=== PATIENT | male | born 1965 | race African-American/Black ===

== ENCOUNTER 2017-06-26 09:47 | Inpatient (IN) | payer MEDICAID ==
[2017-06-26 10:24] LABS: % IMMATURE GRANULYOCYTES 0.5 % (0.0-1.1); ABSOLUTE IMMATURE GRANULOCYTES 0.04 10^3/uL (0.00-0.10); ADD DIFF? NO; ADD MORPH? NO; ADD SCAN? NO; ATYPICAL LYMPHOCYTE FLAG 0 (0-99); FRAGMENT RBC FLAG 0 (0-99); HEMATOCRIT 47.5 % (40.0-51.0); HEMOGLOBIN 16.4 g/dL (13.7-17.5); LEFT SHIFT FLG 0 (0-99); LIPEMIA HEMOLYSIS FLAG 90 (0-99); MEAN CELL HEMOGLOBIN 30.7 pg (27.9-34.1); MEAN CELL HEMOGLOBIN CONCENTR. 34.5 g/dL (32.4-36.7); MEAN PLATELET VOLUME 9.4 fL (8.7-11.7); PLATELET CLUMPS FLAG 0 (0-99); PLATELET COUNT 253 10^3/uL (150-400); RED BLOOD CELL COUNT 5.34 10^6/uL (4.40-6.38); RED CELL DISTRIBUTION WIDTH 12.4 % (11.5-15.2)
[2017-06-26] MEDS ORDERED: NS 1,000 ML IV ONE (10:29)
[2017-06-26 10:40] LABS: ALANINE AMINOTRANSFERASE 57 IU/L (21-72); ALBUMIN 4.3 g/dL (3.5-5.0); ALKALINE PHOSPHATASE 116 IU/L (38-126); ANION GAP 13 mEq/L (8-16); ASPARTATE AMINOTRANSFERASE 46 IU/L (17-59); BILIRUBIN,TOTAL 0.7 mg/dL (0.1-1.4); CALCIUM 9.8 mg/dL (8.5-10.4); CARBON DIOXIDE 25 mEq/l (22-31); CHLORIDE 102 mEq/L (97-110); CREATININE 0.6 mg/dL (0.7-1.3); GLOMERULAR FILTRATION RATE > 60; GLUCOSE 143 mg/dL (70-100); SODIUM 140 mEq/L (134-144); TOTAL PROTEIN 7.3 g/dL (6.3-8.2)
--- NOTE | 2017-06-26 10:47 | CPEKG ---
Heart Rate: 109 RR Interval: 550 P-R Interval: 152 QRSD Interval: 80 QT Interval: 352 QTC Interval: 475 P [place]: 51 QRS [place]: -1 T Wave [place]: -37 EKG Severity - ABNORMAL ECG - EKG Impression: SINUS TACHYCARDIA EKG Impression: LEFT VENTRICULAR HYPERTROPHY EKG Impression: BORDERLINE T ABNORMALITIES, INFERIOR LEADS Electronically Signed By: Alexandru Rajan 26-Jun-2017 13:47:14
--- NOTE | 2017-06-26 11:53 | EDPHY ---
H & P Stated Complaint: loss of balance generalized x 4 days slurred speech since 6am Time Seen by Provider: 06/26/17 09:56 HPI/ROS: This patient presents with somnolence, dizziness and slurred speech. He was brought in by a co-worker for evaluation of the symptoms. The patient has a background history is notable for tra-mbadwva-ocekmjzfd diabetes and multiple sclerosis off his Copaxone for 1 month now. He also has chronic back pain treated with hydrocodone until 2 days ago when he ran out. His recent social history is notable for a move from [place] 1 month ago. The patient describes a 4 day history of feeling more off balance than his usual baseline with MS. he also reports onset of slurred speech yesterday around 9:00 p.m.. The symptoms that alerted coworkers today is primarily the slurred speech and somnolence. When mere is placed from the patient he also agrees the has a slight left upper lip droop compared to his baseline. The patient reports compliance with his other medications. ROS: No fevers or chills. He does admit fatigue. No other constitutional symptoms HEENT: No recent head injury. No headache. Pulmonary: No cough shortness of breath. Cardiovascular: He denies any chest pain or heart palpitations. No lightheadedness. GI: No abdominal pain, nausea vomiting or diarrhea. : He denies any dysuria. No testicle pain Musculoskeletal: Chronic back pain slightly worse over the past few days. He describes this is bilateral lumbar location. It worsens with movement. It is similar to his chronic low back pain. No recent injuries. Neuro: He reports dysarthria that seems to come and go over the past 2 days. No headache. He has not noticed any new focal numbness tingling or focal weakness. No bowel or bladder incontinence. He denies insomnia Complete review of symptoms is otherwise negative. Source: Patient Exam Limitations: Clinical condition - Personal History Current Tetanus Diphtheria and Acellular Pertussis (TDAP): Yes - Medical/Surgical History PMH: Jwi-mzojeki-rdqgvtczq diabetes MS Hypercholesterolemia Hypertension Bipolar Anxiety Hx Chronic Respiratory Disease: Yes Hx Diabetes: Yes Hx Cardiac Disease: Yes Hx Renal Disease: No Hx Cirrhosis: No Hx Alcoholism: No Hx HIV/AIDS: No Hx Splenectomy or Spleen Trauma: No Other PMH: MS. DM2. HTN. COPD. Chronic Back Pain. Kidney Stones. Sleep Apnea. face surgery and patellar tendon - Social History Smoking Status: Light smoker Alcohol Use: Rarely Drug Use: None Additional Social History: Patient moved to 1 month ago from [place]. Janet gabriel-a friend from [employer] this providing temporary half-way for the patient since his moved to [place] and came in at 10 after 12 explaining that he is weak in sleepy compared to his baseline. 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 Hypertension to 136/100 otherwise normal General: Obese black male Patient is in no acute distress. HEENT: Is no external evidence of trauma on exam. Eyes: Pupils are equal and reactive to light. Extraocular motions are intact. Optic fundi: Clear with no papilledema or hemorrhage. Nose atraumatic. Ears: Clear bilaterally with no hemotympanum. Oropharynx: No dental trauma or malocclusion. No intraoral lacerations. Eyes: Pupils are equal and reactive to light. Extraocular motions are intact. Optic fundi: Clear with no papilledema or hemorrhage. Visual acuity is 20/ 20 right eye, 20/20 OS and 20/20 both eyes with correction Lungs: Clear to auscultation bilaterally Neck: Supple no meningismus. Cardiac: Regular rate and rhythm no murmur gallop or rub. Abdomen: Soft nontender no organomegaly Back: No midline tenderness. He has bilateral lumbar paraspinous tenderness. Straight leg raise is negative bilaterally Neuro: Patient is drowsy-falls asleep intermittently during the exam. He has an NIH stroke scale of 3 with mild limb ataxia in his upper extremities but not lower extremities and slight left upper lip droop. Cranial nerves are otherwise grossly intact. Appreciate no other focal deficits. Maintains 5/5 strength in great toe dorsiflexion plantar flexion bilaterally. Psychiatric: No psychotic symptoms. No suicidal ideation. He denies any intentional overdose. Initial differential diagnosis: MS flare, ischemic stroke, intoxication, [employer] lesion, intracranial bleed, UTI, paraspinous abscess-doubtful Constitutional: Initial Vital Signs Temperature (C) 36.7 C 06/26/17 09:50 Heart Rate 114 H 06/26/17 09:50 Respiratory Rate 20 06/26/17 09:50 Blood Pressure 136/100 H 06/26/17 09:50 O2 Sat (%) 95 06/26/17 09:50 O2 Delivery Mode Room Air Allergies/Adverse Reactions: erythromycin base Allergy (Verified 06/26/17 10:02) ketorolac [From Toradol] Allergy (Verified 06/26/17 10:02) Milk Containing Products [dairy] Allergy (Verified 06/26/17 10:02) Penicillins Allergy (Verified 06/26/17 10:02) Home Medications: Medication Instructions Recorded Diazepam [Valium 5 MG (*)] 5 mg PO DAILY PRN 06/26/17 Dimethyl Fumarate [Tecfidera] 240 mg PO DAILY 06/26/17 Gemfibrozil [Lopid 600 MG (*)] 600 mg PO BIDAC 06/26/17 Glatiramer Acetate [Copaxone] 40 mg SQ Q2D 06/26/17 Hydrochlorothiazide [HCTZ (*)] 25 mg PO BID 06/26/17 Hydrocodone/Acetaminophen [Birney 1 each PO Q6HRS PRN 06/26/17 5/325 (*)] metFORMIN HCL [Glucophage 1000 mg] 1,000 mg PO BIDMEAL 06/26/17 Medical Decision Making - Diagnostics EKG Interpretation: 12 lead EKG performed at 10:45 a.m. indication dizziness-rule out dysrhythmia or VT Sinus tachycardia 109 Intervals: Normal throughout [place]: P of 51, QRS of-1 copy of my [address] segments T-wave inversion in AVF Overall assessment sinus tachycardia with borderline T-wave abnormalities inferiorly-cannot rule out ischemia. No prior EKGs for comparison. Imaging: Discussed imaging studies w/ blower insulator Radiologist ED Course/Re-evaluation: IV, monitor, normal in bolus, I-STAT revealed glucose of 118 Patient remained stable but somnolent while here. I discussed the CT results with Dr. Myers-radiologist white matter changes consistent with MS but no evidence of stroke, bleed, tumor or other gross abnormalities. I spoke with Dr. Paz-neurologist jd edwards consultant who recommends MRI without contrast for evaluation of MS lesions. Tylenol p. o. for back pain Patient's urine alcohol and urine tox are pending. Reviewed the patient's CBC reveals no significant abnormalities. Similarly his comp metabolic panel reveals no significant metabolic pathology. Troponin is normal. We are unable to obtain an MRI here today. Given the patient's ongoing somnolence, and facial droop he warrants admission for further workup and neurology consultation. The patient's level of somnolence diminished after his initial nap while here. However he still has difficulty remembering any details of his history such as the physician that prescribed his medications for him. Discussion: While the patient is increased dizziness may be attributable to MS exacerbation, his somnolence is not. While he denies any recent opiate use or alcohol intake, I suspect possible recent opiate ingestion causing his current somnolence. He does not have significant respiratory depression from this or other acute complicating factors. I doubt infectious etiology given lack of fever or elevated white blood cell count. The patient warrants admission for further workup, observation and treatment of other potential etiology including TIA. I spoke with an at with hospitalist service at [facility] who accepts the patient for admission to Dr. Marciano Juan Urine tox reveals positive benzos. I asked the patient about this at 1:15 p.m. and he reports that he failed to mention Valium muscle relaxer for back pain. He reports last dose was 2 days ago. He also forgot initially that he takes amitriptyline periodically at bedtime for anxiety or insomnia any took a single pill last night. He denies any ingestions of benzos within the last 48 hours he denies any recent alcohol. - Data Points Laboratory Results: Laboratory Results 06/26/17 10:10 06/26/17 10:10 Medications Given: Hydrocodone Bitart/Acetaminophen (Birney 10/325) 2 tab PO Q6HRS PRN PRN Reason: Pain, Severe Able to Take PO Stop: 07/06/17 15:38 Last Admin: 06/28/17 04:12 Dose: 2 tab Diazepam (Valium) 5 mg PO DAILY PRN PRN Reason: Spasms Stop: 12/23/17 15:38 Last Admin: 06/28/17 06:08 Dose: 5 mg Enoxaparin Sodium (Lovenox) 40 mg SC DAILY [facility] Stop: 12/24/17 08:59 Last Admin: 06/28/17 08:33 Dose: 40 mg Gemfibrozil (Lopid) 600 mg PO BIDAC [facility] Stop: 12/23/17 17:29 Last Admin: 06/28/17 06:30 Dose: 600 mg Hydrochlorothiazide (Hydrochlorothiazide) 25 mg PO BID [place] Stop: 12/23/17 20:59 Last Admin: 06/28/17 08:33 Dose: 25 mg Lorazepam (Ativan Injection) 1 mg IVP Q4HRS PRN PRN Reason: Anxiety, Unable to Take PO Stop: 12/23/17 15:57 Last Admin: 06/26/17 20:27 Dose: 1 mg Miscellaneous Medication (Dimethyl Fumarate [Tecfidera]) 0 mg PO DAILY [facility] Stop: 12/24/17 08:59 Last Admin: 06/28/17 08:36 Dose: Not Given Miscellaneous Medication (Glatiramer Acetate [Copaxone]) 0 mg SQ Q2D [facility] Stop: 12/23/17 15:44 Last Admin: 06/26/17 16:30 Dose: Not Given Miscellaneous Medication (Metformin Hcl [Glucophage 1000 Mg]) 0 mg PO BIDMEAL [facility] Stop: 12/24/17 17:59 Last Admin: 06/28/17 08:34 Dose: 1,000 mg Fluticasone/Salmeterol (Advair) 1 puffs IH BID [facility] Stop: 12/24/17 13:59 Last Admin: 06/27/17 21:23 Dose: 1 inh Discontinued Medications Acetaminophen (Tylenol) 1,000 mg PO ONCE ONE Stop: 06/26/17 12:35 Last Admin: 06/26/17 12:45 Dose: Not Given Sodium Chloride (Ns) 1,000 mls @ 0 mls/hr IV ONCE ONE; Wide Open PRN Reason: Protocol Stop: 06/26/17 10:30 Last Admin: 06/26/17 10:30 Dose: 1,000 mls Miscellaneous Medication (Metformin Hcl [Glucophage 1000 Mg]) 0 mg PO BIDMEAL [facility] Stop: 12/23/17 17:59 Last Admin: 06/27/17 08:20 Dose: Not Given Departure - Departure Disposition: [facility] Clinical Impression: Somnolence, Dizziness, Dysarthria, Facial droop, Multiple sclerosis Chronic low back pain Qualifiers: Back pain laterality: bilateral Sciatica presence: without sciatica Qualified Code(s): M54.5 - Low back pain Condition: Fair
[2017-06-26] MEDS ORDERED: ACETAMINOPHEN 500 MG TAB PO ONE (12:34)
[2017-06-26 12:36] LABS: COLOR YELLOW; LEUKOCYTE ESTERASE,URINE NEGATIVE (NEGATIVE); NITRITE,URINE NEGATIVE (NEGATIVE)
[2017-06-26 12:55] LABS: BACTERIA TRACE /hpf (NONE SEEN); MUCUS 2+ /lpf (NONE-1+); WBC,URINE NONE SEEN /hpf (0-3); YEAST OCCASIONAL /hpf (NONE SEEN)
[2017-06-26 13:21] LABS: ETHANOL SERUM < 10 mg/dL (0-10)
[2017-06-26] MEDS ORDERED: ONDANSETRON 4 MG/2 ML VIAL IVP PRN (15:41)
[2017-06-26] MEDS ORDERED: ACETAMINOPHEN 325 MG TAB PO PRN (15:41)
[2017-06-26] MEDS ORDERED: ONDANSETRON DISINTEGRATING 4 MG TAB PO PRN (15:41)
[2017-06-26] MEDS ORDERED: LORazepam 2 MG/ML INJ IVP PRN (15:58)
[2017-06-26] MEDS: GEMFIBROZIL 600 MG TAB PO SCH (16:29)
[2017-06-26] MEDS: HYDROCODONE/APAP 10/325 TAB PO PRN ×2 (16:29→22:54)
[2017-06-26] MEDS: Glatiramer Acetate [Copaxone] 40 MG SQ SCH (16:30)
--- NOTE | 2017-06-26 16:41 | GHP ---
[f rep st] HISTORY AND PHYSICAL DATE OF ADMISSION: 06/26/2017 HISTORY OF PRESENT ILLNESS: The patient is a pleasant 51-year-old gentleman with history of diabetes , hypertension, and multiple sclerosis who presents to urgent care today with multiple complaints. Alejandra miller describes all over body pain as well as difficulty with gait, feeling like he is going to fall forw iona or backwards. He takes Copaxone. He has not had it in at least a month because of relocation [facility] [place] here. He ran out of the prescription. It sounds like he also takes pain medicines. It sounds like he takes [place] every 6 hours, which is somewhat chronic. His pain complaints are bi t nebulous; it sounds like he describes pain everywhere, kidney stones, low back pain. It also sound s as if the patient is out of prescription for those pain pills at home. He denies that is the sole reason for presenting for care. The patient does not have shortness of breath or cough. He does not have chest pain. REVIEW OF SYSTEMS: Complete 10-point review of systems conducted and negative except as noted in the HPI. PAST MEDICAL HISTORY: 1. Type 2 diabetes. 2. Multiple sclerosis. It sounds like relapsing multiple sclerosis. 3. Hypertension. 4. Low back pain. 5. Nephrolithiasis. ALLERGIES: Erythromycin, Ketoralac, milk, penicillin. HOME MEDICATIONS: 1. Columbia. 2. Diazepam. 3. Dimethyl fumarate, which is Tecfidera, which is a multiple sclerosis med. 4. Gemfibrozil. 5. Glatiramer, which is Copaxone. 6. Hydrochlorothiazide. 7. Metformin. SOCIAL HISTORY: Occasional tobacco. No alcohol. 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 FAMILY HISTORY: Reviewed and unremarkable. PHYSICAL EXAMINATION: VITAL SIGNS: Temp 36.7, blood pressure 139/96, pulse in the low 100s. GENERA L: No acute distress. Sclerae anicteric. Oropharynx clear. Mucous membranes moist. NECK: Supple without lymphadenopathy or JVD. Cannot assess JVD secondary to his habitus. HEART: B orderline tachycardic, S1-S2. ABDOMEN: Soft, nontender, nondistended. LOWER EXTREMITIES: No edema . Calves nontender. SKIN: Without rash. NEUROLOGIC: Shows a bit of a wide-based shuffling gait w ith external rotation of his feet. He is able to dorsiflex both feet bilaterally. He has no other f ocal neurologic deficits. Vision was not tested. LABS: Sodium 140, potassium 4, chloride 102, bicarb 25, BUN 10, creatinine 0.6, glucose 143, troponi n less than 0.012. UA has no blood. Tox screen is non negative for benzos and opiates, both of whic h he is prescribed. White count 8, hematocrit 47, platelets 253,000. I have discussed the case with Dr. Alexandru Rajan. He had a nonconstrast head CT that showed multiple nonspecific white matter h ypodensities throughout the bilateral cerebral hemispheres. No acute hemorrhage, no infarcts. EKG s hows sinus at 109 with normal axis and LVH. ASSESSMENT AND PLAN: This is a 51-year-old gentleman with diabetes and multiple sclerosis, presents with multiple complaints. 1. Multiple sclerosis. I suspect the patient has a degree of worsening multiple sclerosis given no Copaxone. Will repeat MRI and have Neurology see him. I will hold off on pulse steroids at this chance e. We will continue his other medications. 2. Pain. I suspect the patient has chronic pain since he has been treated with opiates and he is cu rrently without them. He is not in acute withdrawal. I will restart oral narcotics. 3. Complaints of hematuria. He has no blood on urinalysis and has normal renal function, so no furt her workup is indicated. 4. Diabetes. Will continue his metformin. We will hold insulin, check hemoglobin A1c. 5. Prophylaxis. Pharmacologic prophylaxis indicated with Lovenox. DISPOSITION: 1. Inpatient status. Let PT and OT see him. 2. Hypertension. We will continue his hydrochlorothiazide. 3. Tachycardia in an otherwise nonfocal patient. We will follow. /[id number]/MODL
[2017-06-26] MEDS: METFORMIN HCL 1000 MG PO SCH (18:13)
[2017-06-26] MEDS: HYDROCHLOROTHIAZIDE 25 MG TAB PO SCH (20:24)
[2017-06-27] MEDS: DIAZEPAM 5 MG TAB PO PRN (02:27)
[2017-06-27] MEDS: HYDROCODONE/APAP 10/325 TAB PO PRN ×3 (06:27→21:16)
[2017-06-27] MEDS: GEMFIBROZIL 600 MG TAB PO SCH ×2 (08:19→17:28)
[2017-06-27] MEDS: ENOXAPARIN 40 MG/0.4 ML SYR SC SCH (08:19)
[2017-06-27] MEDS: HYDROCHLOROTHIAZIDE 25 MG TAB PO SCH ×2 (08:19→21:15)
[2017-06-27] MEDS: METFORMIN HCL 1000 MG PO SCH ×2 (08:20→17:28)
[2017-06-27] MEDS: Dimethyl Fumarate [Tecfidera] 240 MG PO SCH (08:20)
[2017-06-27 10:05] LABS: HEMOGLOBIN A1C 5.9 % (4.0-6.0)
--- NOTE | 2017-06-27 11:52 | HOSPPROG ---
Hospitalist Progress Note Assessment/Plan: MS flare: increased white matter changes on MRI. No needs for steroids. FU outpatient with Neuro for Copaxone[ -recommend SNF, but he is worried about work. Will have to stay 30 days for Medicaid #HTN: home meds #Chronic pain: resume home meds #DM: metformin #EDITH: CPAP #Chronic pain: [place] #Diet: regular #DVT ppx: Lovenox #Disp: cont inpt admission with decondition, risk for fall. Cont PT, OT Subjective: feels off-balance Objective: Vital Signs Temp Pulse Resp BP Pulse Ox 36.7 C 105 H 16 126/89 H 92 06/27/17 07:39 06/27/17 07:39 06/27/17 07:39 06/27/17 07:39 06/27/17 07:39 06/26/17 06/27/17 06/28/17 05:59 05:59 05:59 Intake Total 1999 Balance 1999 - Physical Exam Constitutional: no apparent distress, obese Eyes: PERRL Ears, Nose, Mouth, Throat: moist mucous membranes, hearing normal Cardiovascular: regular rate and rhythym, no murmur, rub, or gallop Respiratory: no respiratory distress, no rales or rhonchi Gastrointestinal: normoactive bowel sounds, soft, non-tender abdomen, no palpable masses Genitourinary: no bladder fullness Skin: warm Musculoskeletal: other (weakness LLE ) Neurologic: AAOx3, CN II-XII Intact Psychiatric: interacting appropriately ICD10 Worksheet Patient Problems: Problems Problem Status Onset Chronic low back pain Acute Dizziness Acute Dysarthria Acute Facial droop Acute Multiple sclerosis Acute Somnolence Acute
[2017-06-27] MEDS ORDERED: ALBUTEROL 200 PUFFS/18 GM MDI IH PRN (14:00)
[2017-06-27] MEDS: FLUTICASONE/SALMETER 500/50MCG DISKUS IH SCH ×2 (14:56→21:23)
--- NOTE | 2017-06-27 16:37 | ASMTCMCOM ---
CM Note CM Note Notes: Chart reviewed, pt is a 51 y/o man admitted w/ body pain and difficulty w/ standing. Pt has a hx of multiple sclerosis, diabetets and hypertension. Pt is relocating from [place] to here. Pt ran out of his Copaxone and his prescription pain meds. PT/OT are recommending SNF. CM met w/ pt for dispo planning. Pt was tangential when speaking w/ this CM and had to be redirected multiple times. Pt reports that he works at the [employer] in [place]. 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 Pt is agreeable to going to a SNF. ULTC-100 will be completed on Friday. Referral made to [facility]. CM to follow. Date Signed: 06/27/2017 04:36 PM Electronically Signed By:JEISON Ash
[2017-06-28] MEDS: HYDROCODONE/APAP 10/325 TAB PO PRN ×3 (04:12→20:35)
[2017-06-28] MEDS: DIAZEPAM 5 MG TAB PO PRN (06:08)
[2017-06-28] MEDS: GEMFIBROZIL 600 MG TAB PO SCH ×2 (06:30→18:56)
[2017-06-28] MEDS: HYDROCHLOROTHIAZIDE 25 MG TAB PO SCH ×2 (08:33→20:34)
[2017-06-28] MEDS: ENOXAPARIN 40 MG/0.4 ML SYR SC SCH (08:33)
[2017-06-28] MEDS: METFORMIN HCL 1000 MG PO SCH ×2 (08:34→18:56)
[2017-06-28] MEDS: Dimethyl Fumarate [Tecfidera] 240 MG PO SCH (08:36)
[2017-06-28] MEDS: FLUTICASONE/SALMETER 500/50MCG DISKUS IH SCH ×2 (09:04→20:36)
[2017-06-28] MEDS: Glatiramer Acetate [Copaxone] 40 MG SQ SCH (09:28)
--- NOTE | 2017-06-28 12:11 | GCON ---
[f rep st] CONSULTATION NEUROLOGIC CONSULTATION REFERRING PHYSICIAN: Eleir Juan MD HISTORY: The patient is a 51-year-old gentleman, whom I am asked to see in neurologic consultation r egarding diagnosis of multiple sclerosis and chief complaint of episodes of relatively decreased inte raction and some general decline recently. History is obtained directly from the patient, as we do n ot have any old medical records. He has moved around the country over the last several years with ti me in [place], [place], [place] and most recently back in [place] before coming h ere approximately 1 month ago. He tells me that he developed symptoms about 8 years ago with gait an d balance problems and episodes that were characterized by periods of decreased interaction and some impairment in his speech. He said he could be in a conversation and suddenly stop speaking, and then several seconds later come back to where he was in the middle of a conversation or could speak of so me topic that was completely different. He said people with him would be confused as to what he was doing, and he often does not even know it is happening unless someone points it out to him. He dealt with various symptoms over the years similar to this, but never really had clear-cut explanations un til he had a workup in [place], [place] 2 or 3 years ago and was diagnosed with multiple sclerosi s after imaging studies reportedly showed changes consistent with the disease. Again, with no record s, it is hard to know exactly the details, and that will be important to eventually obtain if possibl e. He often feels as if he is going to fall forward or backward. He has experienced falls. He inju red the right ankle a few years ago, but sounds like perhaps a fracture that never healed completely well. He also describes an episode of slipping at a restaurant, a [employer], hurting his shoulders and periodically notices paresthesias in the extremities. He says he has never received IV steroids for acute multiple sclerosis attacks. There are times when he feels as if he may see visual hallucin ations. He describes episodes of emotional dyscontrol at times and says that he was put on a medicat ion that was advertised by the actor, Sampson Fan. That particular medication is called Nuedexta, a nd that is a brand name for guaifenesin used to treat pseudobulbar affect. With regard to treating multiple sclerosis, he says he was put on Copaxone about 2 or 3 years ago, to ok that for some time and then apparently got on Tecfidera, and seemed to be telling me he was on bot h at once, but that would be really unusual. He seemed a little confused between that drug and the d rug for pseudobulbar affect, which we talked about. That is also a little unclear to me, but most re cently he was on Copaxone and then has not had it for about a month since deciding to come to this ar ea. He tells me he was recently living with a woman and has been no longer welcome to stay there fro m what he is describing. He has been working at [employer] and says he is capable of doing work at [employer], but other times he may struggle. The patient has been diagnosed with sleep apnea and uses CPAP f or the last 6 years. He may have some episodes of sleep paralysis from what he describes. He denies classic cataplexy. Sleep attacks are fairly common for him, and some of this has been witnessed her e as well. REVIEW OF SYSTEMS: A 10-point review of systems is unremarkable, except for that noted above. It hernandes s been difficult for him to describe any clear-cut alleviating or exacerbating factors from what is h appening above. PAST MEDICAL HISTORY: Type 2 diabetes, hypertension, low back pain, history of kidney stones. He hernandes s had some chronic pain issues, for which he has been on pain medications and benzodiazepines at time s. ALLERGIES: Listed erythromycin, ketorolac, milk and penicillin. MEDICATIONS: The medications described when he came in included [place], Valium as needed, Tecfidera a nd Copaxone, gemfibrozil, hydrochlorothiazide and metformin. SOCIAL HISTORY: He has had occasional smoking. No alcohol or drug abuse. He says many years ago he did drink. 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 He finished high school and did a little b it of college. He said he has done various forms of work over the years, but has not been able to ma intain longstanding employment. Mostly, it sounds like he has taken jobs when they are available and has recently started working at a [employer]. He grew up in the foster care system or living in group homes over the years, he says, after originally being in [place] area. He has some family back in [place] with a brother in the [place] area, it sounds like. Recently, he says he has been moving in order to try to find the most affordable place to live, which has included [place], [place], [place] and more recently back to [place]. FAMILY HISTORY: Noncontributory. PHYSICAL EXAMINATION: VITAL SIGNS: Blood pressure is 129/99, pulse of 100, respirations 15, tempera ture 36.6. GENERAL: He is a muscular, mildly overweight gentleman, lying in the bed, in no acute di stress. EYES: Clear. NECK: Supple, with no bruits or masses. CARDIAC: Regular rate and rhythm. No murmur. NEUROLOGIC: He is awake, but a little tired after getting up from the CPAP. He is orie nted to person, place and time. He has good recent and remote memory. Normal [facility]. Concentration and attention are mildly reduced. At times, he can be a little difficult to foll ow with details and mildly tangential, but is doing better today in our conversation that he did yest erday. Pupils 3 mm and reactive. Extraocular movements are intact. Normal facial sensation and str ength. Motor: Normal muscle bulk and tone with some mild weakness, a little more on the right proxi mal and right lower extremity than the left, which is essentially normal. Reflexes are hypoactive. Sensation is generally preserved in the left side and relatively decreased in the right arm in terms of the detailed perception he describes. IMAGING: I have reviewed his brain MRI, which shows white matter changes compatible with demyelinati on, although nonspecific, and could certainly be compatible with multiple sclerosis as well as possib le vascular disease, and even both could be present. LABORATORY STUDIES: Generally unrevealing, with normal CBC, electrolytes and urinalysis. Tox screen was positive for opiates and benzodiazepines. IMPRESSION: The patient has a history of multiple sclerosis based on the history we have available, but no medical records for all the details as to precisely how the diagnosis was determined. It soun ds like the constellation of signs and symptoms plus the MRI in [place], [place] led to the diagn osis, for which he was put on Copaxone and has generally had as his main disease modifying therapy. The Tecfidera was something that he has apparently been on recently as well, but should not be on bot h drugs. He also reports a history of hepatitis C, for which we would want to avoid excessive immuno suppression. I think going back to Copaxone would be appropriate for him at 40 mg 3 times per week a nd would not continue Tecfidera. We really need old records when possible to clarify, but those may be difficult to obtain. We will try as an outpatient. He is not clearly having exacerbation of his disease. Some of these episodes of decreased interaction are potentially sleep attacks associated wi th secondary narcolepsy. He has a history of obstructive sleep apnea and may also be simply excessiv arthur sedated from poor sleep during the nights, and a more formalized sleep study would be productive eventually. Paroxysmal events with multiple sclerosis are not rare and some of these events may fall in that category as well. These are not typically thought of true seizures, but it is within the sp ectrum of dysfunction on an electrical basis rather than a structural process. It is not consistent with TIA. He needs to try to find stability in his location and healthcare, as he has moved around frequently, leading to challenges. We will see what we can do to help once he is discharged, although the [facility] plan is for him to move to a prison facility due to his degree of disability from multiple sclerosis. He was working prior to coming in, so the goal really should be to get him to a state of being able to return to the work force if at all possible. The total unit time with greater than 50% of time counseling, coordination of care and reviewing ever ything with the patient and director of casework services includes 75 minutes. /[id number]/MODL
--- NOTE | 2017-06-28 13:42 | HOSPPROG ---
Hospitalist Progress Note Assessment/Plan: MS: no acute flare. Appreciate Neuro consult. Can continue Copaxone 40mg 3x week. Neuro to try to assist outpatie nt -recommend SNF, but he is worried about work. Will have to stay 30 days for Medicaid #HTN: home meds #Chronic pain: resume home meds #DM: metformin #Narcolepsy: needs outpatient sleep study #Somnolence: improved per pt. Suspect due to EDITH and being off CPAP. Cont CPAP #EDITH: CPAP; has been off x 1 month #Chronic pain: [place] #Diet: regular #DVT ppx: Lovenox #Disp: cont inpt admission with decondition, risk for fall. Awaiting NF placement Subjective: feels less tired since being here on CPAP. Has been off for 30 days Objective: Vital Signs Temp Pulse Resp BP Pulse Ox 36.6 C 114 H 16 155/109 H 92 06/28/17 07:29 06/28/17 11:46 06/28/17 11:46 06/28/17 11:46 06/28/17 11:46 06/27/17 06/28/17 06/29/17 05:59 05:59 05:59 Intake Total 2000 Output Total 500 Balance 2000 -500 - Physical Exam Constitutional: obese Eyes: PERRL Ears, Nose, Mouth, Throat: moist mucous membranes, hearing normal Cardiovascular: regular rate and rhythym, no murmur, rub, or gallop, edema (+1 ankle edema) Respiratory: no respiratory distress, no rales or rhonchi Gastrointestinal: normoactive bowel sounds, soft, non-tender abdomen Genitourinary: no bladder fullness Skin: warm Musculoskeletal: full muscle strength Neurologic: AAOx3, CN II-XII Intact Psychiatric: interacting appropriately ICD10 Worksheet Patient Problems: Problems Problem Status Onset Chronic low back pain Acute Dizziness Acute Dysarthria Acute Facial droop Acute Multiple sclerosis Acute Somnolence Acute
[2017-06-28] MEDS ORDERED: LORazepam 1 MG TAB PO PRN (14:41)
[2017-06-28] MEDS: ENOXAPARIN 60 MG/0.6 ML SYR SC SCH (20:34)
[2017-06-29] MEDS: DIAZEPAM 5 MG TAB PO PRN ×2 (00:09→20:03)
[2017-06-29 04:55] LABS: ANION GAP 9 mEq/L (8-16); CALCIUM 10.2 mg/dL (8.5-10.4); CARBON DIOXIDE 31 mEq/l (22-31); CHLORIDE 94 mEq/L (97-110); CREATININE 0.7 mg/dL (0.7-1.3); GLOMERULAR FILTRATION RATE > 60; GLUCOSE 134 mg/dL (70-100); POTASSIUM 4.2 mEq/L (3.5-5.2); SODIUM 134 mEq/L (134-144)
[2017-06-29] MEDS: HYDROCODONE/APAP 10/325 TAB PO PRN ×2 (06:27→18:40)
[2017-06-29] MEDS: GEMFIBROZIL 600 MG TAB PO SCH ×2 (06:30→18:35)
[2017-06-29 08:00] VITALS: RESP 16
[2017-06-29] MEDS: HYDROCHLOROTHIAZIDE 25 MG TAB PO SCH ×2 (08:24→20:03)
[2017-06-29] MEDS: METFORMIN HCL 1000 MG PO SCH ×2 (08:25→17:59)
[2017-06-29] MEDS: ENOXAPARIN 60 MG/0.6 ML SYR SC SCH ×2 (08:26→20:04)
--- NOTE | 2017-06-29 09:24 | NEUROPROG ---
Assessment: Pt currently in shower and has been stable. The MS seems to be stable and no new recs at this time. Really awaiting placement then getting him back on maintenance meds. Objective: Vital Signs Temp Pulse Resp BP Pulse Ox 36.8 C 123 H 16 141/106 H 93 06/29/17 07:59 06/29/17 07:59 06/29/17 07:59 06/29/17 07:59 06/29/17 07:59 Laboratory Results 06/29/17 04:23 06/28/17 06/29/17 06/30/17 05:59 05:59 05:59 Intake Total 750 Output Total 1440 400 Balance -690 -400 Allergies/Adverse Reactions: erythromycin base Allergy (Verified 06/26/17 10:02) ketorolac [From Toradol] Allergy (Verified 06/26/17 10:02) Milk Containing Products [dairy] Allergy (Verified 06/26/17 10:02) Penicillins Allergy (Verified 06/26/17 10:02)
[2017-06-29] MEDS: FLUTICASONE/SALMETER 500/50MCG DISKUS IH SCH ×2 (09:50→20:26)
[2017-06-29] MEDS: LISINOPRIL 5 MG TAB PO SCH (11:09)
[2017-06-29] MEDS: Dimethyl Fumarate [Tecfidera] 240 MG PO SCH (11:10)
--- NOTE | 2017-06-29 11:36 | HOSPPROG ---
Hospitalist Progress Note Assessment/Plan: MS: no acute flare. Appreciate Neuro consult. Can continue Copaxone 40mg 3x week. Neuro to try to help get medication outpatient awaiting SNF placement, though he is concerned about losing his job #Accelerated HTN: not controlled on diuretics. Did not tolerate Norvasc in past. Start Lisinopril #Chronic pain: resume home meds #DM: metformin #Narcolepsy: needs outpatient sleep study #Somnolence: improved per pt. Suspect due to EDITH and being off CPAP. Cont CPAP #EDITH: CPAP; has been off x 1 month #PTSD/possible depression: I advised that he get PCP here and back on MS meds and then reassess mood with PCP to consider antidepressant #Diet: regular #DVT ppx: Lovenox #Disp: cont inpt admission with decondition, risk for fall. Awaiting NF placement Subjective: no VICENTE, CP. Objective: Vital Signs Temp Pulse Resp BP Pulse Ox 36.8 C 123 H 16 141/106 H 93 06/29/17 07:59 06/29/17 07:59 06/29/17 07:59 06/29/17 07:59 06/29/17 07:59 Laboratory Results 06/29/17 04:23 06/28/17 06/29/17 06/30/17 05:59 05:59 05:59 Intake Total 750 Output Total 1440 400 Balance -690 -400 - Physical Exam Constitutional: obese Eyes: PERRL Ears, Nose, Mouth, Throat: moist mucous membranes, hearing normal Cardiovascular: regular rate and rhythym, no murmur, rub, or gallop, edema (+1 ankel edema) Respiratory: no respiratory distress, no rales or rhonchi Gastrointestinal: normoactive bowel sounds, soft, non-tender abdomen Genitourinary: no bladder fullness Skin: warm Musculoskeletal: full muscle strength Neurologic: AAOx3, CN II-XII Intact Psychiatric: interacting appropriately, No not encephalopathic ICD10 Worksheet Patient Problems: Problems Problem Status Onset Chronic low back pain Acute Dizziness Acute Dysarthria Acute Facial droop Acute Multiple sclerosis Acute Somnolence Acute
[2017-06-30 00:17] VITALS: TEMP 98
[2017-06-30] MEDS: HYDROCODONE/APAP 10/325 TAB PO PRN ×2 (00:18→14:04)
[2017-06-30 05:54] LABS: ANION GAP 13 mEq/L (8-16); CARBON DIOXIDE 29 mEq/l (22-31); CHLORIDE 93 mEq/L (97-110); CREATININE 0.7 mg/dL (0.7-1.3); GLOMERULAR FILTRATION RATE > 60; GLUCOSE 130 mg/dL (70-100); POTASSIUM 3.8 mEq/L (3.5-5.2); SODIUM 135 mEq/L (134-144)
[2017-06-30] MEDS: METFORMIN HCL 1000 MG PO SCH (09:24)
[2017-06-30] MEDS: GEMFIBROZIL 600 MG TAB PO SCH (09:25)
[2017-06-30] MEDS: HYDROCHLOROTHIAZIDE 25 MG TAB PO SCH (09:28)
[2017-06-30] MEDS: LISINOPRIL 5 MG TAB PO SCH (09:28)
[2017-06-30] MEDS: ENOXAPARIN 60 MG/0.6 ML SYR SC SCH (09:29)
[2017-06-30 09:32] VITALS: BP 121/94
[2017-06-30] MEDS: Glatiramer Acetate [Copaxone] 40 MG SQ SCH (10:18)
[2017-06-30] MEDS: Dimethyl Fumarate [Tecfidera] 240 MG PO SCH (10:18)
[2017-06-30] MEDS: FLUTICASONE/SALMETER 500/50MCG DISKUS IH SCH (10:51)
[2017-06-30 11:37] VITALS: PULSE 108; O2SAT 94
--- NOTE | 2017-06-30 15:10 | HOSPPROG ---
Hospitalist Progress Note Assessment/Plan: MS: no acute flare. Appreciate Neuro consult. Can continue Copaxone 40mg 3x week. Neuro to try to help get medication outpatient awaiting SNF placement, though he is concerned about losing his job #Accelerated HTN: not controlled on diuretics. Did not tolerate Norvasc in past. Start Lisinopril #Chronic pain: resume home meds #DM: metformin #Narcolepsy: needs outpatient sleep study #Somnolence: improved per pt. Suspect due to EDITH and being off CPAP. Cont CPAP #EDITH: CPAP; has been off x 1 month. Does not qualify for home o2 since stable on RA during day. will have to have outpatient sleep study done #Deconditioning: initially PT said SNF, but then cleared him once saw him ambulating malik without issue. I offered PT to reevaluate, but patient declined. #PTSD/possible depression: I advised that he get PCP here and back on MS meds and then reassess mood with PCP to consider antidepressant #Diet: regular #Social issues: homeless. Story is not clear. Says from [place] and then [place]. He may be able to stay with a friend. Works at [employer]. #DVT ppx: Lovenox Disp: DC today Subjective: upset that he is not getting MS meds here, oxygen at home Objective: Vital Signs Temp Pulse Resp BP Pulse Ox 36.7 C 108 H 16 121/94 H 94 06/30/17 00:16 06/30/17 10:50 06/30/17 10:50 06/30/17 09:28 06/30/17 10:50 Laboratory Results 06/30/17 05:38 06/29/17 06/30/17 07/01/17 05:59 05:59 05:59 Intake Total 750 Output Total 1440 400 500 Balance -690 -400 -500 - Physical Exam Constitutional: obese Eyes: PERRL Ears, Nose, Mouth, Throat: moist mucous membranes, hearing normal Cardiovascular: regular rate and rhythym, no murmur, rub, or gallop, edema ( trace ankle edeam) Respiratory: no respiratory distress, no rales or rhonchi Gastrointestinal: normoactive bowel sounds, soft, non-tender abdomen Skin: warm Musculoskeletal: full muscle strength Neurologic: AAOx3, CN II-XII Intact, No weakness, No pronator drift Psychiatric: anxious, agitated ICD10 Worksheet Patient Problems: Problems Problem Status Onset Chronic low back pain Acute Dizziness Acute Dysarthria Acute Facial droop Acute Multiple sclerosis Acute Somnolence Acute
--- NOTE | 2017-06-30 15:18 | ASMTCMCOM ---
CM Note CM Note Notes: Pt medically stable for d/c. [facility] f/u 07/01/17 at 11a. Pt does not qualify for SNF, independent w mobility and PT has been d/c here. Pt reports he lives with a friend but does not know if her will return there. Pt not interested in [facility] fci bed. Pt re[ports he will go back to [place] where he has support. Date Signed: 06/30/2017 03:18 PM Electronically Signed By:MARY Walker
--- NOTE | 2017-06-30 15:18 | ASDISCHSUM ---
Discharge Information Plan Status:Home with No Needs Medically Cleared to Leave: Discharge Date:06/30/2017 02:15 PM CM D/C Disposition:Home, Routine, Self-Care ADT D/C Disposition:Home, Routine, Self-Care Projected Discharge Date:06/29/2017 12:00 AM Transportation at D/C: Discharge Delay Reason: Follow-Up Date:06/29/2017 12:00 AM Discharge Slot: Final Diagnosis: Placement Information Referral Type:*Usp/SNF Referral ID:[id number] Provider Name: Address 1: Phone Number: Address 2: Fax Number: City: Selection Factors: State: Patient Contact Information Contact Name:ROM Relationship:Sister Address: Work Phone: City: [facility] Phone: [facility] Code: Email: Financial Information Financial Class: Primary Plan Desc:[employer] [place] Primary Plan Number:[id number] Secondary Plan Desc: Secondary Plan Number: Assessment Information [facility] CM Progress Note CM Note CM Note Notes: Chart reviewed, pt is a 51 y/o man admitted w/ body pain and difficulty w/ standing. Pt has a hx of multiple sclerosis, diabetets and hypertension. Pt is relocating from [place] to here. Pt ran out of his Copaxone and his prescription pain meds. PT/OT are recommending SNF. CM met w/ pt for dispo planning. Pt was tangential when speaking w/ this CM and had to be redirected multiple times. Pt reports that he works at the [employer] in [place]. 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 Pt is agreeable to going to a SNF. ULTC-100 will be completed on Friday. Referral made to [facility]. CM to follow. Date Signed: 06/27/2017 04:36 PM Electronically Signed By:JEISON Ash [facility] CM Progress Note CM Note CM Note Notes: Pt medically stable for d/c. [facility] f/u 07/01/17 at 11a. Pt does not qualify for SNF, independent w mobility and PT has been d/c here. Pt reports he lives with a friend but does not know if her will return there. Pt not interested in [facility] custodial bed. Pt re[ports he will go back to [place] where he has support. Date Signed: 06/30/2017 03:18 PM Electronically Signed By:MARY Walker Intervention Information
--- NOTE | 2017-06-30 16:55 | GDS ---
[f rep st] DISCHARGE SUMMARY DISCHARGE DIAGNOSES: 1. Multiple sclerosis. 2. Gait instability. 3. Accelerated hypertension. 4. Obstructive sleep apnea, not currently on CPAP. 5. Chronic pain. 6. Diabetes. 7. Suspected narcolepsy. 8. Posttraumatic stress disorder/possible depression. HISTORY OF PRESENT ILLNESS: A 51-year-old male with history of multiple sclerosis, hypertension, EDITH , who presented to Urgent Care with multiple complaints including diffuse body pain, difficulty with gait and feeling like he is going to fall forward or backwards. He takes Copaxone, but has not had i t for the last month because he relocated here from [place]. He said he ran out of the prescripti on. Appears to have chronic pain and is on medications for those as well. He denied chest pain, meenu rtness of breath, nausea, vomiting. No vision changes. HOSPITAL COURSE: 1. Multiple sclerosis. There was initial concern for possible flare. MRI showed extensive white ma tter changes consistent with multiple sclerosis. No evidence of acute infarction. He was evaluated by Dr. Radford who did not think he was having acute flare thus IV steroids not warranted. He willard mmended Copaxone 40 mg 3 times a week. This is not formulary and is difficult to be covered with [employer]. Patient is to follow up with Neurology who will assist patient in getting this medication by performing a prior Auth. 2. Accelerated hypertension, currently on hydrochlorothiazide and Lasix, but blood pressure remained elevated here. He did not tolerate Norvasc in the past. Started lisinopril 5 mg daily, needs follo wup blood pressure within a week. 3. Chronic pain. Sounds like he is on [place]. I did not resume these medications. He needs to esta blish with a PCP. 4. Diabetes. Continue metformin. 5. Obstructive sleep apnea. He is on CPAP, but does not have his machine. With Medicaid he is not eligible for night oxygen given that he is stable on room air. 6. Posttraumatic stress disorder. Possible depression. I advised him that he needs to get a primar y care physician here and to get on his multiple sclerosis medications and then reassess need for pos sible mood stabilizer. 7. Deconditioning: Patient was initially evaluated by PT who recommended prison facility p lacement, but then when re-evaluated they saw him walking in the hallway without issue, thus signed o ff. I offered patient to be re-evaluated by therapy today, but he declined. He just wanted to go. DISPOSITION: Patient stable for discharge. FOLLOWUP: 1. Dr. Radford with Neurology to assist with Copaxone. 2. Establish care with a primary care physician. 3. Followup blood pressure for up titration of medications. 4. Outpatient sleep study to continue CPAP. NEW MEDICATIONS: Lisinopril 5 mg. /[id number]/MODL
== END 2017-06-30 14:15 | disposition home or self-care (01) | DRG 60 ==
LOC: CED 09:47 → CEDHOLD 11:59 → F3N 14:38
PROVIDERS: ADMIT Internal Medicine; ATTEND Internal Medicine
DX: G35 Multiple sclerosis (principal); R26.89 Other abnormalities of gait and mobility; R40.0 Somnolence; I10 Essential (primary) hypertension; G47.33 Obstructive sleep apnea (adult) (pediatric); G47.419 Narcolepsy without cataplexy; E11.9 Type 2 diabetes mellitus without complications; G89.29 Other chronic pain; M54.9 Dorsalgia, unspecified; F43.10 Post-traumatic stress disorder, unspecified; F31.9 Bipolar disorder, unspecified; F41.9 Anxiety disorder, unspecified; R29.703 NIHSS score 3; E78.5 Hyperlipidemia, unspecified; J44.9 Chronic obstructive pulmonary disease, unspecified; Z87.442 Personal history of urinary calculi; Z88.0 Allergy status to penicillin
CPT/HCPCS: 70450-PO; 80053-PO; 80307-PO; 81003-PO; 81015-PO; 82947-QW; 84484-PO; 85025-PO; 97161-GP; 97166-GO; G0480; J1650; J2060